=== PATIENT | male | born 1925 | race Caucasian/White ===

== ENCOUNTER 2017-06-20 13:06 | Inpatient (IN) | payer OTHER ==
[~2017-06-20] VITALS: Ht 185.4 cm; Wt 101.6 kg
[~2017-06-20 13:06] MED LIST: ALD2525 PO; ASPI-1159 PO; ATOR80TA PO; CARV3.1242 PO; DOXA4TAB2 PO; FERR-43 PO; FINA5TAB11 PO; FURO40TA5 PO; LOSA50TA20 PO; OMEP20CA10 PO; POTA10TA15 PO; VITAMIN C PO; b12; iron
[2017-06-20] MEDS ORDERED: SODIUM CHLORIDE 0.9% 1,000 ML IV ONE (14:00)
[2017-06-20 14:25] LABS: HEMATOCRIT. 30.7 % (42.0-52.0); HEMOGLOBIN. 10.1 g/dL (14.0-18.0); MEAN CORPUSCULAR HEMOGLOBIN 30.6 pg (28.0-32.0); MEAN CORPUSCULAR VOLUME 92.4 fL (80.0-94.0); MEAN PLATELET VOLUME 9.2 fl (7.4-10.4); PLATELET 185 x1000/uL (130-400); RED BLOOD CELL COUNT 3.32 mill/uL (4.7-6.1); RED CELL DISTRIBUTION WIDTH 13.7 % (11.6-14.6)
[2017-06-20 14:26] LABS: PROTHROMBIN TIME 10.3 sec (9.4-11.6)
[2017-06-20 14:32] LABS: CARBON DIOXIDE 17 mEq/L (21-32); CHLORIDE 98 mEq/L (98-107)
[2017-06-20 15:09] LABS: GLUCOSE URINE NEGATIVE (NEGATIVE); KETONES URINE NEGATIVE (NEGATIVE); LEUKOCYTE ESTERASE URINE 3+ (NEGATIVE); NITRITE URINE NEGATIVE (NEGATIVE); OCCULT BLOOD URINE 3+ (NEGATIVE); PH URINE 5.5 (4.5-8.0); PROTEIN URINE 2+ (NEGATIVE); SPECIFIC GRAVITY URINE 1.015 (1.005-1.030); UROBILINOGEN URINE 0.2 E.U./dL (0.2-1.0)
[2017-06-20 15:19] LABS: CLARITY URINE CLOUDY (CLEAR); COLOR URINE YELLOW (YELLOW)
[2017-06-20 15:21] LABS: PLATELET ESTIMATE NORMAL
[2017-06-20] MEDS ORDERED: CEFTRIAXONE 1 G PREMIX 50 ML IV ONE (15:45)
[2017-06-20] MEDS ORDERED: SODIUM CHLORIDE 0.9% 1,000 ML IV SCH (15:50)
[2017-06-20 18:49] VITALS: BP 131/47
[2017-06-20 20:00] VITALS: BP 131/47
[2017-06-20 20:41] VITALS: BP 133/53
[2017-06-20] MEDS: DEXT 5%/0.9% NACL 1,000 ML IV SCH (21:16)
[2017-06-20] MEDS: PANTOPRAZOLE SODIUM 40 MG/VIAL IV SCH (21:16)
[2017-06-21] VITALS: BP 128/53
[2017-06-21 00:52] LABS: HEMATOCRIT 25.6 % (42.0-52.0); HEMOGLOBIN 8.8 g/dL (14.0-18.0)
[2017-06-21 04:00] VITALS: BP 102/57
[2017-06-21 05:43] LABS: HEMATOCRIT. 24.9 % (42.0-52.0); HEMOGLOBIN. 8.4 g/dL (14.0-18.0); MEAN CORPUSCULAR VOLUME 91.4 fL (80.0-94.0); MEAN PLATELET VOLUME 9.7 fl (7.4-10.4); PLATELET 154 x1000/uL (130-400); RED BLOOD CELL COUNT 2.72 mill/uL (4.7-6.1); RED CELL DISTRIBUTION WIDTH 13.5 % (11.6-14.6)
[2017-06-21 07:22] VITALS: BP 136/54
[2017-06-21] MEDS: PANTOPRAZOLE SODIUM 40 MG/VIAL IV SCH (09:13)
[2017-06-21 11:26] VITALS: BP 125/56
[2017-06-21] MEDS: DEXT 5%/0.9% NACL 1,000 ML IV SCH ×2 (11:30→21:37)
[2017-06-21] MEDS ORDERED: IPRATROPIUM/ALBUTEROL 0.5-3(2.5)MG/3ML NEB INH PRN (11:45)
[2017-06-21] MEDS ORDERED: HYDROCODONE/ACETAMINOPHEN 5/325MG TABLET PO PRN (11:45)
[2017-06-21] MEDS ORDERED: ACETAMINOPHEN 325MG TABLET PO PRN (11:45)
[2017-06-21 12:30] LABS: HEMATOCRIT 26.6 % (42.0-52.0)
[2017-06-21 15:26] VITALS: BP 117/54
[2017-06-21] MEDS ORDERED: CEFTRIAXONE 1 G PREMIX 50 ML IV SCH (16:00)
[2017-06-21 17:18] LABS: TROPONIN I 0.04 ng/mL (0.00-0.04)
[2017-06-21] MEDS: CITRIC ACID/SODIUM CITRATE SOLN 30ML UDC PO SCH (17:31)
[2017-06-21 20:00] VITALS: BP 130/52
[2017-06-21 21:01] LABS: PLATELET ESTIMATE NORMAL
[2017-06-21] MEDS: ATORVASTATIN CALCIUM 40MG TABLET PO SCH (21:36)
[2017-06-22] VITALS: BP 136/59
[2017-06-22 01:38] LABS: TROPONIN I 0.03 ng/mL (0.00-0.04)
[2017-06-22 04:00] VITALS: BP 142/54
[2017-06-22 06:45] LABS: HEMATOCRIT. 25.2 % (42.0-52.0); HEMOGLOBIN. 8.4 g/dL (14.0-18.0); MEAN CORPUSCULAR HEMOGLOBIN 30.2 pg (28.0-32.0); MEAN CORPUSCULAR VOLUME 91.2 fL (80.0-94.0); MEAN PLATELET VOLUME 9.5 fl (7.4-10.4); PLATELET 186 x1000/uL (130-400); RED BLOOD CELL COUNT 2.76 mill/uL (4.7-6.1); RED CELL DISTRIBUTION WIDTH 13.8 % (11.6-14.6)
[2017-06-22 07:42] LABS: CARBON DIOXIDE 18 mEq/L (21-32); CHLORIDE 108 mEq/L (98-107); HDL CHOLESTEROL 10 mg/dL (40-59); LDL CHOLESTEROL 39 mg/dL (5-100); PHOSPHORUS 4.9 mg/dL (2.5-4.9); TOTAL IRON BINDING CAPACITY 148 ug/dL (250-450)
[2017-06-22 07:58] VITALS: BP 125/58
[2017-06-22] MEDS: CITRIC ACID/SODIUM CITRATE SOLN 30ML UDC PO SCH ×2 (08:49→18:20)
[2017-06-22] MEDS: TAMSULOSIN HCL 0.4MG SR CAPSULE PO SCH (08:49)
[2017-06-22] MEDS: PANTOPRAZOLE SODIUM 40 MG/VIAL IV SCH (08:49)
[2017-06-22] MEDS: FINASTERIDE 5MG TABLET PO SCH (08:50)
[2017-06-22 12:19] VITALS: BP 115/68
[2017-06-22 13:24] LABS: PLATELET ESTIMATE NORMAL
[2017-06-22] MEDS: DEXT 5%/0.9% NACL 1,000 ML IV SCH (14:11)
[2017-06-22 16:53] VITALS: BP 127/59
[2017-06-22] MEDS ORDERED: LEVOFLOXACIN 250MG PREMIX 50 ML IV SCH (18:00)
[2017-06-22] MEDS ORDERED: SODIUM BICARBONATE 8.4% 1 MEQ/ML 50ML SYR IV NR (18:00)
[2017-06-22 20:00] VITALS: BP 120/82
[2017-06-22] MEDS: ATORVASTATIN CALCIUM 40MG TABLET PO SCH (20:51)
[2017-06-22] MEDS ORDERED: EPOETIN ALFA 10000UNITS/ML VIAL SUBCUT NR (21:00)
[2017-06-23] VITALS: BP 124/55
[2017-06-23] MEDS: DEXT 5%/0.9% NACL 1,000 ML IV SCH ×3 (03:44→23:45)
[2017-06-23 04:00] VITALS: BP 130/65
[2017-06-23 06:36] LABS: BASOPHILS % 0.2 % (0.0-2.0); EOSINOPHILS % 2.7 % (0.0-5.0); HEMATOCRIT. 25.5 % (42.0-52.0); HEMOGLOBIN. 8.6 g/dL (14.0-18.0); LYMPHOCYTES % 7.1 % (20.0-50.0); MEAN CORPUSCULAR HEMOGLOBIN 30.7 pg (28.0-32.0); MEAN PLATELET VOLUME 9.3 fl (7.4-10.4); MONOCYTES % 11.1 % (2.0-8.0); NEUTROPHILS % 78.9 % (40.0-76.0); PLATELET 215 x1000/uL (130-400); RED CELL DISTRIBUTION WIDTH 13.6 % (11.6-14.6)
[2017-06-23 08:15] LABS: CARBON DIOXIDE 21 mEq/L (21-32); CHLORIDE 107 mEq/L (98-107); PHOSPHORUS 3.6 mg/dL (2.5-4.9)
[2017-06-23] MEDS: CITRIC ACID/SODIUM CITRATE SOLN 30ML UDC PO SCH ×2 (08:48→17:02)
[2017-06-23] MEDS: PANTOPRAZOLE SODIUM 40 MG/VIAL IV SCH (08:48)
[2017-06-23] MEDS: FINASTERIDE 5MG TABLET PO SCH (08:48)
[2017-06-23] MEDS: TAMSULOSIN HCL 0.4MG SR CAPSULE PO SCH (08:49)
[2017-06-23 09:04] VITALS: BP 141/60
[2017-06-23 12:43] VITALS: BP 131/61
[2017-06-23] MEDS ORDERED: POTASSIUM CHLORIDE 20MEQ TABLET SR PO NR (14:30)
[2017-06-23] MEDS ORDERED: SODIUM BICARBONATE 8.4% MEQ/ML 50ML VIAL IV NR (14:30)
[2017-06-23 16:31] VITALS: BP 128/60
[2017-06-23 20:00] VITALS: BP 156/60
[2017-06-23] MEDS: ATORVASTATIN CALCIUM 40MG TABLET PO SCH (21:52)
[2017-06-24] VITALS: BP_SYST 140; BP_SYST 156; BP_SYST 160; BP_DIAS 54; BP_DIAS 60; BP_DIAS 88
[2017-06-24] MEDS: CLONIDINE 0.1MG TABLET PO PRN (00:08)
[2017-06-24] MEDS: DEXT 5%/0.9% NACL 1,000 ML IV SCH (01:57)
[2017-06-24 04:00] VITALS: BP 155/60
[2017-06-24 06:06] LABS: HEMATOCRIT. 24.7 % (42.0-52.0); HEMOGLOBIN. 8.1 g/dL (14.0-18.0); MEAN CORPUSCULAR HEMOGLOBIN 29.9 pg (28.0-32.0); MEAN CORPUSCULAR VOLUME 91.4 fL (80.0-94.0); MEAN PLATELET VOLUME 8.8 fl (7.4-10.4); PLATELET 267 x1000/uL (130-400); RED CELL DISTRIBUTION WIDTH 13.7 % (11.6-14.6)
[2017-06-24 07:02] LABS: CARBON DIOXIDE 22 mEq/L (21-32); CHLORIDE 108 mEq/L (98-107); PHOSPHORUS 3.2 mg/dL (2.5-4.9)
[2017-06-24 08:14] VITALS: BP 144/60
[2017-06-24] MEDS: CITRIC ACID/SODIUM CITRATE SOLN 30ML UDC PO SCH ×2 (09:41→17:24)
[2017-06-24] MEDS: POLYETHYLENE GLYCOL 3350 (17GM) 1 DOSE PACK PO SCH ×2 (09:41→21:27)
[2017-06-24] MEDS: FINASTERIDE 5MG TABLET PO SCH (09:41)
[2017-06-24] MEDS: PANTOPRAZOLE SODIUM 40 MG/VIAL IV SCH (09:41)
[2017-06-24] MEDS: IRON SUCROSE COMPLEX 100 MG/5 ML ML IV SCH (09:42)
[2017-06-24] MEDS ORDERED: LEVOFLOXACIN 250MG TABLET PO SCH (11:00)
[2017-06-24 12:13] VITALS: BP 138/66
[2017-06-24 16:00] VITALS: BP 147/61
[2017-06-24 17:04] LABS: PLATELET ESTIMATE NORMAL
[2017-06-24 20:00] VITALS: BP 123/59
[2017-06-24] MEDS: ATORVASTATIN CALCIUM 40MG TABLET PO SCH (21:27)
[2017-06-24] MEDS: DOXAZOSIN MESYLATE 2MG TABLET PO SCH (21:27)
[2017-06-25] VITALS: BP 127/82
[2017-06-25 04:00] VITALS: BP 131/63
[2017-06-25 06:32] LABS: HEMOGLOBIN. 8.3 g/dL (14.0-18.0); MEAN CORPUSCULAR HEMOGLOBIN 30.4 pg (28.0-32.0); MEAN CORPUSCULAR VOLUME 91.5 fL (80.0-94.0); MEAN PLATELET VOLUME 8.9 fl (7.4-10.4); PLATELET 333 x1000/uL (130-400); RED BLOOD CELL COUNT 2.73 mill/uL (4.7-6.1); RED CELL DISTRIBUTION WIDTH 13.7 % (11.6-14.6)
[2017-06-25 07:27] VITALS: BP 141/60
[2017-06-25 07:32] LABS: PHOSPHORUS 4.1 mg/dL (2.5-4.9)
[2017-06-25] MEDS: LEVOFLOXACIN 250MG TABLET PO SCH (10:54)
[2017-06-25] MEDS: FINASTERIDE 5MG TABLET PO SCH (11:00)
[2017-06-25] MEDS: IRON SUCROSE COMPLEX 100 MG/5 ML ML IV SCH (11:02)
[2017-06-25] MEDS ORDERED: FUROSEMIDE 40MG/4ML VIAL IVP NR (11:30)
[2017-06-25 12:00] VITALS: BP 133/51
[2017-06-25] MEDS: FAMOTIDINE 20MG TABLET PO SCH (14:02)
[2017-06-25 16:00] VITALS: BP 131/49
[2017-06-25 16:58] LABS: PLATELET ESTIMATE NORMAL
[2017-06-25 20:40] VITALS: BP 128/57
[2017-06-25] MEDS: ATORVASTATIN CALCIUM 40MG TABLET PO SCH (21:41)
[2017-06-25] MEDS: DOXAZOSIN MESYLATE 2MG TABLET PO SCH (21:42)
[2017-06-25] MEDS: POLYETHYLENE GLYCOL 3350 (17GM) 1 DOSE PACK PO SCH (21:42)
[2017-06-26] VITALS (17 sets, daily range): BP systolic 120–136; BP diastolic 49–82
[2017-06-26 06:29] LABS: HEMATOCRIT. 23.7 % (42.0-52.0); HEMOGLOBIN. 7.8 g/dL (14.0-18.0); MEAN CORPUSCULAR VOLUME 91.4 fL (80.0-94.0); MEAN PLATELET VOLUME 8.8 fl (7.4-10.4); PLATELET 346 x1000/uL (130-400); RED CELL DISTRIBUTION WIDTH 13.9 % (11.6-14.6)
[2017-06-26 06:45] LABS: CARBON DIOXIDE 20 mEq/L (21-32); CHLORIDE 103 mEq/L (98-107); PHOSPHORUS 4.5 mg/dL (2.5-4.9)
[2017-06-26] MEDS: FAMOTIDINE 20MG TABLET PO SCH ×2 (06:52→08:38)
[2017-06-26] MEDS: IRON SUCROSE COMPLEX 100 MG/5 ML ML IV SCH (08:35)
[2017-06-26] MEDS: CITRIC ACID/SODIUM CITRATE SOLN 30ML UDC PO SCH (08:36)
[2017-06-26] MEDS: FINASTERIDE 5MG TABLET PO SCH (08:38)
[2017-06-26] MEDS: LEVOFLOXACIN 250MG TABLET PO SCH (10:06)
[2017-06-26] MEDS: IPRATROPIUM/ALBUTEROL 0.5-3(2.5)MG/3ML NEB INH SCH ×3 (10:16→15:42)
[2017-06-26 12:11] LABS: PLATELET ESTIMATE NORMAL
[2017-06-26] MEDS: CLONIDINE 0.1MG TABLET PO PRN (12:41)
[2017-06-26] MEDS: POLYETHYLENE GLYCOL 3350 (17GM) 1 DOSE PACK PO SCH (21:00)
[2017-06-26] MEDS: ATORVASTATIN CALCIUM 40MG TABLET PO SCH (21:41)
[2017-06-26] MEDS: DOXAZOSIN MESYLATE 2MG TABLET PO SCH (21:43)
[2017-06-27 01:10] LABS: HEMOGLOBIN 9.7 g/dL (14.0-18.0)
[2017-06-27 05:36] VITALS: BP 140/72
[2017-06-27] MEDS ORDERED: PROPOFOL 200MG/20ML VIAL IV ONE (07:44)
[2017-06-27] MEDS ORDERED: LIDOCAINE HCL 1% 20ML VIAL (Pyxis) INJ ONE (07:44)
[2017-06-27 07:45] VITALS: BP 132/52
[2017-06-27] MEDS ORDERED: FENTANYL CITRATE/PF 50MCG/ML 2ML VIAL ONE ×2 (07:50→08:07)
[2017-06-27] MEDS ORDERED: CEFAZOLIN SODIUM 1000MG/VIAL ONE (07:51)
[2017-06-27] MEDS: IPRATROPIUM/ALBUTEROL 0.5-3(2.5)MG/3ML NEB INH SCH ×3 (08:06→15:03)
[2017-06-27] MEDS ORDERED: EPHEDRINE SULFATE 50MG/ML VIAL ONE (08:12)
[2017-06-27] MEDS ORDERED: ONDANSETRON HCL 4MG/2ML VIAL ONE (08:24)
[2017-06-27] MEDS ORDERED: SODIUM CHLORIDE 0.9% 1,000 ML IV SCH (08:47)
[2017-06-27] MEDS ORDERED: ONDANSETRON HCL 4MG/2ML VIAL IV PRN (09:00)
[2017-06-27] MEDS ORDERED: MORPHINE SULFATE 2 MG/ML CPJ (NOT FOR IM USE) IV PRN (09:00)
[2017-06-27] MEDS: FAMOTIDINE 20MG TABLET PO SCH (10:41)
[2017-06-27] MEDS: CITRIC ACID/SODIUM CITRATE SOLN 30ML UDC PO SCH (10:41)
[2017-06-27] MEDS: POLYETHYLENE GLYCOL 3350 (17GM) 1 DOSE PACK PO SCH ×2 (10:41→17:04)
[2017-06-27] MEDS: FINASTERIDE 5MG TABLET PO SCH (10:41)
[2017-06-27 12:08] VITALS: BP 152/63
[2017-06-27 16:22] VITALS: BP 132/56
[2017-06-27 19:45] VITALS: BP 128/62
[2017-06-27] MEDS: ATORVASTATIN CALCIUM 40MG TABLET PO SCH (21:57)
[2017-06-27] MEDS: DOXAZOSIN MESYLATE 2MG TABLET PO SCH (21:58)
[2017-06-28] VITALS: BP 143/54
[2017-06-28 04:00] VITALS: BP 138/58
[2017-06-28 06:45] LABS: HEMATOCRIT. 28.9 % (42.0-52.0); HEMOGLOBIN. 9.4 g/dL (14.0-18.0); MEAN CORPUSCULAR HEMOGLOBIN 29.4 pg (28.0-32.0); MEAN CORPUSCULAR VOLUME 90.7 fL (80.0-94.0); MEAN PLATELET VOLUME 8.2 fl (7.4-10.4); PLATELET 388 x1000/uL (130-400); RED BLOOD CELL COUNT 3.19 mill/uL (4.7-6.1); RED CELL DISTRIBUTION WIDTH 14.3 % (11.6-14.6)
[2017-06-28 08:01] VITALS: BP 166/58
[2017-06-28 08:12] LABS: PHOSPHORUS 3.9 mg/dL (2.5-4.9)
[2017-06-28] MEDS: IPRATROPIUM/ALBUTEROL 0.5-3(2.5)MG/3ML NEB INH SCH ×2 (08:20→12:15)
[2017-06-28] MEDS: CITRIC ACID/SODIUM CITRATE SOLN 30ML UDC PO SCH (08:55)
[2017-06-28] MEDS: FINASTERIDE 5MG TABLET PO SCH (08:55)
[2017-06-28] MEDS: FAMOTIDINE 20MG TABLET PO SCH (08:56)
[2017-06-28] MEDS: POLYETHYLENE GLYCOL 3350 (17GM) 1 DOSE PACK PO SCH (08:56)
[2017-06-28] MEDS ORDERED: LEVOFLOXACIN 250MG TABLET PO SCH (11:00)
[2017-06-28 12:00] VITALS: BP 145/63
[2017-06-28 13:46] VITALS: BP 145/63
[2017-06-28 14:08] LABS: PLATELET ESTIMATE NORMAL
== END 2017-06-28 15:00 | disposition home or self-care (01) | DRG 668 ==
LOC: ER 14:56 → 6WST 15:46 → ENRESERV 17:30
PROVIDERS: ADMIT Internal Medicine; ATTEND Internal Medicine
PROC: 30233N1 Transfusion of Nonautologous Red Blood Cells into Peripheral Vein, Percutaneous Approach (ICD-10-PCS; 2017-06-27)
PROC: 0TBB8ZZ Excision of Bladder, Via Natural or Artificial Opening Endoscopic (ICD-10-PCS; principal; 2017-06-27 07:30)
DX: C67.9 Malignant neoplasm of bladder, unspecified (principal); N17.0 Acute kidney failure with tubular necrosis; E43 Unspecified severe protein-calorie malnutrition; E87.2 Acidosis; N18.4 Chronic kidney disease, stage 4 (severe); K57.92 Diverticulitis of intestine, part unspecified, without perforation or abscess without bleeding; I13.0 Hypertensive heart and chronic kidney disease with heart failure and stage 1 through stage 4 chronic kidney disease, or unspecified chronic kidney disease; I50.9 Heart failure, unspecified; I49.5 Sick sinus syndrome; E87.1 Hypo-osmolality and hyponatremia; N39.0 Urinary tract infection, site not specified; I25.5 Ischemic cardiomyopathy; I25.10 Atherosclerotic heart disease of native coronary artery without angina pectoris; D50.9 Iron deficiency anemia, unspecified; E78.00 Pure hypercholesterolemia, unspecified; E78.5 Hyperlipidemia, unspecified; I35.0 Nonrheumatic aortic (valve) stenosis; K21.9 Gastro-esophageal reflux disease without esophagitis; R33.9 Retention of urine, unspecified; N40.1 Benign prostatic hyperplasia with lower urinary tract symptoms; B96.20 Unspecified Escherichia coli [E. coli] as the cause of diseases classified elsewhere; Z79.899 Other long term (current) drug therapy; Z80.9 Family history of malignant neoplasm, unspecified; Z85.528 Personal history of other malignant neoplasm of kidney; Z90.5 Acquired absence of kidney; Z90.79 Acquired absence of other genital organ(s); Z91.19 Patient's noncompliance with other medical treatment and regimen; Z95.1 Presence of aortocoronary bypass graft; Z95.0 Presence of cardiac pacemaker; Z79.82 Long term (current) use of aspirin; Z90.49 Acquired absence of other specified parts of digestive tract; Z83.6 Family history of other diseases of the respiratory system; Z68.29 Body mass index [BMI] 29.0-29.9, adult; K64.8 Other hemorrhoids; N40.0 Benign prostatic hyperplasia without lower urinary tract symptoms
CPT/HCPCS: 36415; 71010; 71250; 74176; 76770; 80048; 80053; 80061; 81001; 82270; 82550; 82570; 83540; 83550; 83735; 84100; 84156; 84300; 84484; 85014; 85018; 85025; 85044; 85610; 86850; 86900; 86920; 87077; 87086; 87186; 88305; 93005; 93306; 94640; 94664; 96361; 96365; 97110; 97162; 97530; 99285; A6261; C9113; J0171; J0690; J0696; J0885; J1940; J1956; J2405; J2704; J3010; J3490; J7030; J7042; J7050; J7620; P9016; A4315